=== PATIENT | male | born 1980 | race Caucasian/White ===

== ENCOUNTER 2017-05-04 08:30 | Emergency (ER) | payer SELFPAY ==
[2017-05-04] MEDS ORDERED: Diph,Pert(Acell),Tet Vac 0.5 ML SYR IM ONE (08:44)
[2017-05-04] MEDS ORDERED: CLINDAMYCIN 150 MG CAP PO ONE (08:45)
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
== END 2017-05-04 09:38 | disposition home or self-care (01) ==
LOC: ER 08:30
DX: S61.431A Puncture wound without foreign body of right hand, initial encounter (principal); W45.0XXA Nail entering through skin, initial encounter; Y99.0 Civilian activity done for income or pay
CPT/HCPCS: 90715; 96372; 99283; 99284

== ENCOUNTER 2017-12-22 10:55 | Emergency (ER) | payer SELFPAY ==
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
[2017-12-22 12:07] LABS: BASO % 0.2 % (0-6); EOS % 0.6 % (0-6); GRAN % 56.8 % (47-80); HEMATOCRIT 40.3 % (42.0-52.0); LYMPH % 34.1 % (16-45); MEAN CORPUSCULAR HEMOGLOBIN 30.9 pg (27-33); MEAN CORPUSCULAR HGB CONC 34.7 g/dl (32-36); MEAN PLATELET VOLUME 8.8 fl (7.4-10.4); MONO % 8.3 % (0-9); PLATELET COUNT 299 K/uL (130-400); RED BLOOD COUNT 4.53 M/uL (4.40-5.70); RED CELL DISTRIBUTION WIDTH 12.2 % (11.5-14.5); WHITE BLOOD COUNT W/O DIFF 5.1 K/uL (4.2-12.2)
[2017-12-22 12:15] LABS: BLOOD UREA NITROGEN 14 mg/dL (6-20); CREATININE 0.7 mg/dL (0.7-1.2); EST GLOMERULAR FILTRATION RATE > 60 mL/min
[2017-12-22 12:16] LABS: TOTAL PROTEIN 7.2 g/dL (6.6-8.7)
[2017-12-22 12:18] LABS: GLUCOSE,RANDOM 93 mg/dL (74-109)
[2017-12-22 12:20] LABS: ALT/SGPT 6 U/L (<41); AST/SGOT 20 U/L (10.0-50.0)
[2017-12-22 12:21] LABS: ALB/GLOB RATIO 1.7 (1.1-1.8); ALBUMIN 4.5 g/dL (4.0-5.0); ALKALINE PHOSPHATASE 43 U/L (40-129); CREATINE PHOSPHOKINASE 392 U/L (39-308)
[2017-12-22 12:22] LABS: CKMB 4.4 ng/mL (<6.73)
[2017-12-22] MEDS ORDERED: BACITRACIN 500 UNITS/1 PACKET TOP ONE (12:42)
[2017-12-22 13:58] LABS: AMPHETAMINE SCREEN URINE NOT DETECTED; BARBITURATE SCREEN URINE NOT DETECTED; BENZODIAZEPINE SCREEN URINE NOT DETECTED; COCAINE SCREEN URINE NOT DETECTED; METHADONE SCREEN URINE NOT DETECTED; METHAMPHETAMINE SCREEN NOT DETECTED; OPIATE SCREEN URINE NOT DETECTED; OXYCODONE SCREEN URINE NOT DETECTED; PHENCYCLIDINE SCREEN URINE NOT DETECTED; PROPOXYPHENE SCREEN URINE NOT DETECTED; THC SCREEN URINE NOT DETECTED; TRICYCLIC ANTIDEPRESSANT SCRN NOT DETECTED
== END 2017-12-22 13:03 | disposition home or self-care (01) ==
LOC: ER 10:55
DX: T22.211A Burn of second degree of right forearm, initial encounter (principal); R00.2 Palpitations; W86.1XXA Exposure to industrial wiring, appliances and electrical machinery, initial encounter; Y92.63 Factory as the place of occurrence of the external cause; Y99.0 Civilian activity done for income or pay; F17.290 Nicotine dependence, other tobacco product, uncomplicated
CPT/HCPCS: 80053; 80305; 82550; 82553; 84484; 85025; 93005; 93010; 99284